=== PATIENT | female | born 1990 | race Caucasian/White ===

== ENCOUNTER 2018-07-12 07:32 | Emergency (ER) | payer OTHER ==
[~2018-07-12] VITALS: Ht 160 cm; Wt 117.9 kg
[~2018-07-12 07:32] MED LIST: KEPPRA500 MG PO
[2018-07-12 09:06] VITALS: BP 127/92
== END 2018-07-12 09:11 | disposition home or self-care (01) ==
LOC: FSED 07:32
DX: J02.9 Acute pharyngitis, unspecified (principal); R56.9 Unspecified convulsions; F41.9 Anxiety disorder, unspecified
CPT/HCPCS: 83518; 87400; 99283

== ENCOUNTER 2019-03-01 08:06 | Emergency (ER) | payer OTHER ==
[~2019-03-01] VITALS: Ht 162.6 cm; Wt 114.8 kg
[2019-03-01] MEDS ORDERED: CEFTRIAXONE SOD 1 GM VIAL IM ONE (08:30)
[2019-03-01] MEDS ORDERED: DEXAMETHASONE SOD PHOS 10 MG/1 ML VIAL IM ONE (08:30)
[2019-03-01] MEDS ORDERED: LEXAPRO10 MG PO (08:33)
[2019-03-01] MEDS ORDERED: LIDOCAINE HCL 1% 2 ML AMP ONE (08:46)
[2019-03-01 09:39] VITALS: BP 133/101
== END 2019-03-01 09:40 | disposition home or self-care (01) ==
LOC: ER 08:06
DX: R50.9 Fever, unspecified (principal); R05 Cough; J01.00 Acute maxillary sinusitis, unspecified
CPT/HCPCS: 99283; J0696; J1100; J2001

== ENCOUNTER 2019-06-02 05:49 | Emergency (ER) | payer OTHER ==
[~2019-06-02] VITALS: Ht 162.6 cm; Wt 114.8 kg
[~2019-06-02 05:49] MED LIST changes: +LEXAPRO10 MG PO
[2019-06-02] MEDS ORDERED: DIAZEPAM 5 MG TAB PO ONE (06:15)
[2019-06-02] MEDS ORDERED: KETOROLAC TROMETHAMINE 60 MG/2 ML VIAL IM ONE (06:15)
--- NOTE | 2019-06-02 07:10 | Diagnostic Imaging Report ---
History: Left neck pain. Comparison studies: Cervical spine from CT from 01/14/2016. Technique: Axial images were obtained through the cervical region.. Coronal and sagittal images reconstructed from the axial data. Dose modulation, iterative reconstruction, and/or weight based adjustment of the mA/kV was utilized to reduce the radiation dose to as low as reasonably achievable. Intravenous contrast: None Findings: Fractures: None. Soft tissue injuries: None. Atlantoaxial articulation: Intact. Alignment: Loss of normal cervical lordosis is either positional or due to muscle spasm. No scoliosis. No subluxation. Cervicomedullary junction: No abnormalities. The foramen magnum is patent. Soft tissues: No abnormalities. Vertebrae: No fractures, infection or neoplasm. Degenerative changes: C7-T1: Moderate degenerative right foraminal stenosis due to facet and uncovertebral arthrosis.. Mild degenerative disc disease. No canal stenosis. IMPRESSION: 1. No acute cervical spine fracture or dislocation. Loss of normal cervical lordosis is either positional or due to muscle spasm. 2. Ligament, spinal cord and or vascular abnormalities cannot be excluded on the basis of this examination. 3. Moderate right foraminal stenosis at C7-T1. No canal stenosis. Signed by: Dr. Magdalena Atkins M.D. on 06/02/2019 7:06 AM
--- NOTE | 2019-06-02 11:23 | NUR ---
[facility] CALLED INFORMING OF PT JUST PICKED UP A [facility] OF SAME MEDS TODAY AT [facility]; RX CANCELLED.
--- OUTSIDE RECORDS SUMMARY | 2019-06-03 14:02 | XMS REPORT ---
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 Allergies, Adverse Reactions, Alerts This patient has no known allergies or adverse reactions. Medications This patient has no known medications. Results Test Description Test Time Test Comments Text Results Atomic Results Result Comments CT CERVICAL SPINE WO 2019-06-02 07:02:00 [facility] [address] [place] [address] Patient Name: VJ GUTIERREZ MR #: [id number] : 1990 Age/Sex: 29/F Req #: [id number] Adm Physician: Ordered by: DREW FAUSTIN MD Report #: [id number] Location: ER Room/Bed: Procedure: [id number] CT/CT CERVICAL SPINE WO Exam Date: 06/02/19 Exam Time: 0625 REPORT STATUS: Signed History: Left neck pain. Comparison studies: Cervi itzel spine from CT from 01/14/2016. Technique: Axial images were obtained through the cervical region.. Coronal and sagittal images reconstructed from the axial data. Dose modulation, iterative reconstruction, and/or weight based adjustment of the mA/kV was utilized to reduce the radiation dose to as low as reasonably achievable. Intravenous contrast: None Findings: Fractures: None. Soft tissue injuries: None. Atlantoaxial articulation: Intact. Alignment: Loss of normal cervical lordosis is either positional or due to muscle spasm. No scoliosis. No subluxation. Cervicomedullary junction: No abnormalities. The foramen magnum is patent. Soft tissues: No abnormalities. Vertebrae: No fractures, infection or neoplasm. Degenerative changes: C7-T1: Moderate degenerative right foraminal stenosis due to facet and uncovertebral arthrosis.. Mild degenerative disc disease. No canal stenosis. IMPRESSION: 1. No acute cervical spine fracture or dislocation. Loss of normal cervical lordosis is either positional or due to muscle spasm. 2. Ligament, spinal cord and or vascular abnormalities cannot be excluded on the basis of this examination. 3. Moderate right foraminal stenosis at C7-T1. No canal stenosis. Signed by: Dr. Magdalena Rod M.D. on 06/02/2019 7:06 AM Dictated By: MAGDALENA ROD MD 5 Transcribed By: FELY on 06/02/19705 COPY TO: DREW FAUSTIN MD
== END 2019-06-02 07:31 | disposition home or self-care (01) ==
LOC: ER 05:49
DX: S16.1XXA Strain of muscle, fascia and tendon at neck level, initial encounter (principal); W01.0XXA Fall on same level from slipping, tripping and stumbling without subsequent striking against object, initial encounter; Y93.9 Activity, unspecified; Y92.092 Bedroom in other non-institutional residence as the place of occurrence of the external cause; G40.909 Epilepsy, unspecified, not intractable, without status epilepticus; F41.8 Other specified anxiety disorders; E66.9 Obesity, unspecified; Z68.41 Body mass index [BMI] 40.0-44.9, adult
CPT/HCPCS: 72125; 99283; J1885

== ENCOUNTER 2019-12-15 10:53 | Emergency (ER) | payer OTHER ==
[~2019-12-15] VITALS: Ht 162.6 cm; Wt 114.8 kg
--- NOTE | 2019-12-15 12:14 | Emergency Department Note ---
History of Present Illnes History of Present Illness Chief Complaint: General Medicine Complaints History of Present Illness This is a 29 year old female arrived to the ED with concerns of having Covid 19. Patient states she has had exposure and is worried for herself and has 3 kids. . 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 Any updates have been documented here. Past Medical History Recent Fever: No Clinical Suspicion of Infectio: Yes New/Unexplained Change in Ment: No Past Medical History: Seizure Disorder, Anxiety Other Medical History: morbid obesity Past Surgical History: None Social History Smoking Cessation: Current some day smoker Counseling Performed: No Alcohol Use: Occasional Any Illegal Drug Use: Yes (marijuana) Physically hurt or threatened: No Other Last Tetanus: unknown Any Pre-Existing Lines (PICC,: No Review of Systems Review of Systems Constitutional: Reports as per HPI, Reports fever EENTM: Reports no symptoms Cardiovascular: Reports no symptoms Respiratory: Reports as per HPI Gastrointestinal: Reports no symptoms Genitourinary: Reports no symptoms Musculoskeletal: Reports no symptoms Integumentary: Reports no symptoms Neurological: Reports no symptoms Psychological: Reports no symptoms Endocrine: Reports no symptoms Hematological/Lymphatic: Reports no symptoms Physical Exam Related Data Allergies: Coded Allergies: No Known Allergies (Unverified , 01/14/16) Triage Vital Signs Vital Signs Date Time Temp Pulse Resp B/P (MAP) Pulse Ox O2 Delivery O2 Flow Rate FiO2 12/15/19 11:13 99.5 114 20 157/106 98 Room Air Vital signs reviewed: Yes Physical Exam CONSTITUTIONAL Constitutional: Present well-developed, Present well-nourished HENT HENT: Present normocephalic, Present atraumatic, Present oropharynx clear/moist, Present nose normal HENT L/R: Present left ext ear normal, Present right ext ear normal EYES Eyes: Reports PERRL, Reports conjunctivae normal NECK Neck: Present ROM normal PULMONARY Pulmonary: Present effort normal, Present breath sounds normal CARDIOVASCULAR Cardiovascular: Present regular rhythm, Present heart sounds normal, Present capillary refill normal, Present normal rate GASTROINTESTINAL Abdominal: Present soft, Present nontender, Present bowel sounds normal GENITOURINARY Genitourinary: Present exam deferred SKIN Skin: Present warm, Present dry MUSCULOSKELETAL Musculoskeletal: Present ROM normal NEUROLOGICAL Neurological: Present alert, Present oriented x 3, Present no gross motor or sensory deficits PSYCHOLOGICAL Psychological: Present mood/affect normal, Present judgement normal Results Laboratory Laboratory Laboratory Tests Test 12/15/19 11:20 Assessment & Plan Medical Decision Making MDM 29-year-old well-appearing callie arrives to the ED with complaints of cough fever loss of taste and smell. Patient is clinically presenting with signs and symptoms consistent with Covd 19. Patient informed she is positive until proven otherwise. Patient's oxygen saturation remained 99% even on exertion, no evidence of tachypnea or dyspnea noted in the ED. Spoke present length about the importance of sleeping on his stomach and rotating from side to side. Z-Elie given, signs and symptoms for return discussed. In the light of the Covid pandemic, disaster medicine care was given. Assessment & Plan Final Impression: (1) COVID-19 Depart Disposition: HOME, SELF-CARE Last Vital Signs Date Time Temp Pulse Resp B/P (MAP) Pulse Ox O2 Delivery O2 Flow Rate FiO2 12/15/19 11:13 99.5 114 20 157/106 98 Room Air Home Meds Reported Medications Escitalopram Oxalate (LEXAPRO) 10 Mg Tablet, 10 MG PO DAILY, #30 TAB 03/01/19 Levetiracetam (KEPPRA) 500 Mg Tablet, 500 MG PO BID, TAB 10/22/16 ABIOLA GRIFFIN DO Dec 15, 2019 12:14
--- NOTE | 2019-12-19 08:45 | NUR ---
pt given neg covid 19 resuts. per lab report
== END 2019-12-15 11:36 | disposition home or self-care (01) ==
LOC: ER 11:29
DX: U07.1 COVID-19 (principal); R50.9 Fever, unspecified; R05 Cough; F41.9 Anxiety disorder, unspecified; G40.909 Epilepsy, unspecified, not intractable, without status epilepticus; E66.01 Morbid (severe) obesity due to excess calories; Z11.59 Encounter for screening for other viral diseases; F17.210 Nicotine dependence, cigarettes, uncomplicated
CPT/HCPCS: 87635; 99282

== ENCOUNTER 2020-03-28 07:09 | Emergency (ER) | payer OTHER ==
[~2020-03-28] VITALS: Ht 162.6 cm; Wt 122.5 kg
--- NOTE | 2020-03-28 07:14 | Emergency Department Note ---
History of Present Illnes History of Present Illness History of Present Illness This is a 29 year old female with increased sinus pain since thursday presents to the ED for increase chest congestion. Recently started on azithromycin 2 days prior . Historian: Patient Onset (how long ago): day(s) (2) Severity: moderate Onset quality: gradual Duration (how long): day(s) (2) Timing of current episode: constant Progression: worsening Chronicity: new Context: Reports recent illness Relieving factors: none Exacerbating factors: none Associated symptoms: Reports cough, Reports fever/chills Previous service: medications given Past Medical/Family History Physician Review I have reviewed the patient's past medical and family history. Any updates have been documented here. Past Medical History Recent Fever: Yes Clinical Suspicion of Infectio: Yes New/Unexplained Change in Ment: No Past Medical History: Seizure Disorder, Anxiety Other Medical History: asthma morbid obesity Past Surgical History: None Social History Smoking Cessation: Never Smoker Alcohol Use: None Any Illegal Drug Use: Yes (marijuana) Other Last Tetanus: unknown Review of Systems Review of Systems Constitutional: Reports fever EENTM: Reports nose congestion Cardiovascular: Reports other (chest congestion) Respiratory: Reports cough Neurological: Reports other (dizziness) Physical Exam Related Data Allergies: Coded Allergies: No Known Allergies (Unverified , 01/14/16) Vital signs reviewed: Yes Physical Exam CONSTITUTIONAL Constitutional: Present morbidly obese HENT HENT: Present normocephalic, Present atraumatic, Present oropharynx clear/ivory st, Present nose normal HENT L/R: Present left ext ear normal, Present right ext ear normal EYES Eyes: Reports PERRL, Reports conjunctivae normal NECK Neck: Present ROM normal PULMONARY Pulmonary: Present effort normal, Present other (bibasilar wheezing) CARDIOVASCULAR Cardiovascular: Present regular rhythm, Present heart sounds normal, Present capillary refill normal, Present normal rate GASTROINTESTINAL Abdominal: Present soft, Present nontender, Present bowel sounds normal GENITOURINARY Genitourinary: Present exam deferred SKIN Skin: Present warm, Present dry MUSCULOSKELETAL Musculoskeletal: Present ROM normal NEUROLOGICAL Neurological: Present alert, Present oriented x 3, Present no gross motor or sensory deficits PSYCHOLOGICAL Psychological: Present mood/affect normal, Present judgement normal Results Laboratory Lab results reviewed: Yes Laboratory comments Laboratory Tests Test 03/28/20 07:29 White Blood Count 6.79 x10e3/uL (4.8-10.8) Red Blood Count 4.83 x10e6/uL (3.6-5.1) Hemoglobin 14.0 g/dL (12.0-16.0) Hematocrit 41.7 % (34.2-44.1) Mean Corpuscular Volume 86.3 fL (81-99) Mean Corpuscular Hemoglobin 29.0 pg (28-32) Mean Corpuscular Hemoglobin Concent 33.6 g/dL (31-35) Red Cell Distribution Width 13.3 % (11.7-14.4) Platelet Count 212 x10e3/uL (140-360) Neutrophils (%) (Auto) 60.5 % (38.7-80.0) Lymphocytes (%) (Auto) 24.0 % (18.0-39.1) Monocytes (%) (Auto) 9.6 % (4.4-11.3) Eosinophils (%) (Auto) 5.2 % (0.0-6.0) Basophils (%) (Auto) 0.4 % (0.0-1.0) Neutrophils # (Auto) 4.1 (2.1-6.9) Lymphocytes # (Auto) 1.6 (1.0-3.2) Monocytes # (Auto) 0.7 (0.2-0.8) Eosinophils # (Auto) 0.4 (0.0-0.4) Basophils # (Auto) 0.0 (0.0-0.1) Absolute Immature Granulocyte (auto 0.02 x10e3/uL (0-0.1) Sodium Level 140 mmol/L (136-145) Potassium Level 3.6 mmol/L (3.5-5.1) Chloride Level 107 mmol/L (98-107) Carbon Dioxide Level 21 mmol/L (22-29) Anion Gap 15.6 mmol/L (8-16) Blood Urea Nitrogen 6 mg/dL (7-26) Creatinine 0.77 mg/dL (0.57-1.11) Estimat Glomerular Filtration Rate > 60 ML/MIN (60-) BUN/Creatinine Ratio 8 (6-25) Glucose Level 97 mg/dL (74-118) Calcium Level 9.0 mg/dL (8.4-10.2) Total Bilirubin 0.6 mg/dL (0.2-1.2) Aspartate Amino Transf (AST/SGOT) 27 IU/L (5-34) Alanine Aminotransferase (ALT/SGPT) 35 IU/L (0-55) Alkaline Phosphatase 58 IU/L (40-150) Total Protein 7.1 g/dL (6.5-8.1) Albumin 3.7 g/dL (3.5-5.0) Globulin 3.4 g/dL (2.3-3.5) Albumin/Globulin Ratio 1.1 (0.8-2.0) Influenza Virus Types A,B Antigen Negative (NEGATIVE) Imaging Imaging results reviewed: Yes Impressions [place] [address] Patient Name: ODESSA GUTIERREZ MR #: [id number] : 1990 Age/Sex: 29/F Req #: [id number] Adm Physician: Ordered by: PARKER BYERS DO Report #: [id number] Location: ER Room/Bed: Procedure: [id number] DX/CHEST 2 VIEWS Exam Date: 03/28/20 Exam Time: 829 REPORT STATUS: Signed EXAMINATION: CHEST 2 VIEWS INDICATION: ^cough ^[id number] ^0830 COMPARISON: None FINDINGS: PA and lateral views TUBES and LINES: None. LUNGS: Lungs are well inflated. Lungs are clear. There is no evidence of pneumonia or pulmonary edema. PLEURA: No pleural effusion or pneumothorax. HEART AND MEDIASTINUM: The cardiomediastinal silhouette is unremarkable. BONES AND SOFT TISSUES: No acute osseous lesion. Soft tissues are unremarkable. UPPER ABDOMEN: No free air under the diaphragm. IMPRESSION: No acute thoracic radiographic abnormality. Signed by: Oneil Marx MD on 03/28/2020 9:22 AM Dictated By: ONEIL MARX MD 1 Transcribed By: FELY on 03/28/20921 COPY TO: PARKER BYERS DO~ Assessment & Plan Medical Decision Making MDM Diff Dx : URI, COVID-19 infection, ACS, , ectopic , Seizure Assessment & Plan Final Impression: (1) URI (upper respiratory infection) Depart Disposition: HOME, SELF-snf Meds Reported Medications Escitalopram Oxalate (LEXAPRO) 10 Mg Tablet, 10 MG PO DAILY, #30 TAB 03/01/19 Levetiracetam (KEPPRA) 500 Mg Tablet, 500 MG PO BID, TAB 10/22/16 PARKER BYERS DO Mar 28, 2020 07:14
[2020-03-28] MEDS ORDERED: SODIUM CHLORIDE 0.9% 1000ML 1,000 ML IV STA (07:22)
[2020-03-28] MEDS ORDERED: ALBUTEROL/IPRATROPIUM 3 ML NEB NEB STA (07:25)
[2020-03-28] MEDS ORDERED: METHYLPREDNISOLONE SOD SUCC 125 MG/2ML VIAL IV STA (07:25)
--- NOTE | 2020-03-28 07:49 | NUR ---
requested Nebulizer Treatment from [facility]
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
[2020-03-28 07:59] LABS: BASOPHILS % 0.4 % (0.0-1.0); EOSINOPHILS # (AUTO) 0.4 (0.0-0.4); EOSINOPHILS % 5.2 % (0.0-6.0); HEMATOCRIT 41.7 % (34.2-44.1); LYMPHOCYTES # (AUTO) 1.6 (1.0-3.2); MEAN CORPUSCULAR HGB CONC 33.6 g/dL (31-35); MEAN CORPUSCULAR VOLUME 86.3 fL (81-99); MONOCYTES # (AUTO) 0.7 (0.2-0.8); MONOCYTES % 9.6 % (4.4-11.3); NEUTROPHILS # (AUTO) 4.1 (2.1-6.9); NEUTROPHILS % 60.5 % (38.7-80.0); PLATELET COUNT 212 x10e3/uL (140-360); RED BLOOD COUNT 4.83 x10e6/uL (3.6-5.1); RED CELL DISTRIBUTION WIDTH 13.3 % (11.7-14.4)
[2020-03-28 08:40] LABS: ALANINE AMINOTRANSFERASE 35 IU/L (0-55); ALBUMIN 3.7 g/dL (3.5-5.0); ALBUMIN/GLOBULIN RATIO 1.1 (0.8-2.0); ALKALINE PHOSPHATASE 58 IU/L (40-150); ANION GAP 15.6 mmol/L (8-16); BLOOD UREA NITROGEN 6 mg/dL (7-26); BUN/CREATININE RATIO 8 (6-25); CARBON DIOXIDE 21 mmol/L (22-29); CHLORIDE 107 mmol/L (98-107); CREATININE, SERUM 0.77 mg/dL (0.57-1.11); EST GLOMERULAR FILTRATION RATE > 60 ML/MIN (60-); GLUCOSE 97 mg/dL (74-118); POTASSIUM 3.6 mmol/L (3.5-5.1); SODIUM 140 mmol/L (136-145)
--- NOTE | 2020-03-28 09:25 | Diagnostic Imaging Report ---
EXAMINATION: CHEST 2 VIEWS INDICATION: ^cough ^[id number] ^0822 COMPARISON: None FINDINGS: PA and lateral views TUBES and LINES: None. LUNGS: Lungs are well inflated. Lungs are clear. There is no evidence of pneumonia or pulmonary edema. PLEURA: No pleural effusion or pneumothorax. HEART AND MEDIASTINUM: The cardiomediastinal silhouette is unremarkable. BONES AND SOFT TISSUES: No acute osseous lesion. Soft tissues are unremarkable. UPPER ABDOMEN: No free air under the diaphragm. IMPRESSION: No acute thoracic radiographic abnormality. Signed by: Josue Tavera MD on 03/28/2020 9:22 AM
[2020-03-28 09:47] VITALS: BP 124/86
== END 2020-03-28 10:00 | disposition home or self-care (01) ==
LOC: ER 07:50
DX: J06.9 Acute upper respiratory infection, unspecified (principal); G40.909 Epilepsy, unspecified, not intractable, without status epilepticus; F41.9 Anxiety disorder, unspecified; E66.01 Morbid (severe) obesity due to excess calories
CPT/HCPCS: 36415; 71046; 80053; 85025; 87400; 94640; 99284; J2930; J7030

== ENCOUNTER 2022-01-05 20:20 | Emergency (ER) | payer OTHER ==
[~2022-01-05] VITALS: Ht 162.6 cm; Wt 122.5 kg
[2022-01-05] MEDS ORDERED: METHYLPREDNISOLONE SOD SUCC 125 MG/2ML VIAL IM STA (20:43)
[2022-01-05] MEDS ORDERED: METHYLPREDNISOLONE SOD SUCC 125 MG/2ML VIAL ONE (20:56)
[2022-01-05] MEDS ORDERED: AZITHROMYCIN250 MG PO (22:11)
[2022-01-05] MEDS ORDERED: PREDNISONE20 MG PO (22:11)
[2022-01-05 22:50] VITALS: BP 128/85
== END 2022-01-05 23:00 | disposition home or self-care (01) ==
LOC: ER 20:35
DX: R50.9 Fever, unspecified (principal); J32.9 Chronic sinusitis, unspecified; E66.01 Morbid (severe) obesity due to excess calories
CPT/HCPCS: 70486; 99282; J2930

== ENCOUNTER 2024-01-27 17:35 | Emergency (ER) | payer OTHER ==
[~2024-01-27] VITALS: Ht 162.6 cm; Wt 122.5 kg
[~2024-01-27 17:35] MED LIST changes: +AMOX TR-K CLV1 EAC2 PO; +AZITHROMYCIN250 MG PO; +CIPROFLOX-DEXA7.5 ML RIGHT EAR; +PREDNISONE20 MG PO; +XOFLUZA80 MG PO
[2024-01-27 18:17] VITALS: TEMP 99.1
[2024-01-27] MEDS: KETOROLAC TROMETHAMINE 30 MG/ML VIAL IV STA (18:50)
[2024-01-27] MEDS: SODIUM CHLORIDE 0.9% 1000ML 1,000 ML IV SCH (18:50)
[2024-01-27] MEDS: ONDANSETRON HCL INJ 2MG/ML 2ML 2 MG/ML VIAL IV STA (18:51)
[2024-01-27 19:07] LABS: INFLUENZAE A&B ANTIGEN (RAPID) NEGATIVE (NEGATIVE)
[2024-01-27 19:08] LABS: RESPIRATORY SYNC. VIRUS POSITIVE (NEGATIVE)
[2024-01-27 19:40] VITALS: PULSE 87; RESP 16
[2024-01-27] MEDS ORDERED: MUCINEX DM ER1 EACH PO (19:49)
[2024-01-27 20:08] VITALS: BP 130/78; PULSE 87; RESP 16; O2SAT 100
[2024-01-28] MEDS ORDERED: BENZONATATE100 MG PO (15:36)
[2024-01-28] MEDS ORDERED: ONDANSETRON ODT4 MG PO (15:36)
== END 2024-01-27 20:00 | disposition home or self-care (01) ==
LOC: ER 18:08
DX: R50.9 Fever, unspecified (principal); B97.4 Respiratory syncytial virus as the cause of diseases classified elsewhere; R05.9 Cough, unspecified; R51.9 Headache, unspecified; J45.909 Unspecified asthma, uncomplicated; G40.909 Epilepsy, unspecified, not intractable, without status epilepticus; F41.9 Anxiety disorder, unspecified; E66.01 Morbid (severe) obesity due to excess calories; Z11.52 Encounter for screening for COVID-19
CPT/HCPCS: 87400; 87420; 99283; J1885; J2405; J7030; U0002

== ENCOUNTER 2024-01-28 13:49 | Emergency (ER) | payer OTHER ==
[~2024-01-28] VITALS: Ht 162.6 cm; Wt 122.5 kg
[~2024-01-28 13:49] MED LIST changes: +MUCINEX DM ER1 EACH PO
[2024-01-28 13:53] VITALS: TEMP 98.3
[2024-01-28] MEDS: SODIUM CHLORIDE 0.9% 1000ML 1,000 ML IV ONE (15:08)
[2024-01-28] MEDS: ONDANSETRON HCL INJ 2MG/ML 2ML 2 MG/ML VIAL IV ONE (15:08)
[2024-01-28 15:09] LABS: BASOPHILS % 0.7 % (0.0-1.0); EOSINOPHILS # (AUTO) 0.3 (0.0-0.4); EOSINOPHILS % 4.8 % (0.0-6.0); HEMATOCRIT 38.5 % (34.2-44.1); HEMOGLOBIN 12.8 g/dL (12.0-16.0); LYMPHOCYTES # (AUTO) 0.9 (1.0-3.2); LYMPHOCYTES % 16.4 % (18.0-39.1); MEAN CORPUSCULAR HEMOGLOBIN 30.3 pg (28-32); MEAN CORPUSCULAR HGB CONC 33.2 g/dL (31-35); MEAN CORPUSCULAR VOLUME 91.2 fL (81-99); MONOCYTES # (AUTO) 0.3 (0.2-0.8); MONOCYTES % 4.6 % (4.4-11.3); NEUTROPHILS # (AUTO) 4.2 (2.1-6.9); NEUTROPHILS % 73.3 % (38.7-80.0); PLATELET COUNT 206 x10e3/uL (140-360); RED BLOOD COUNT 4.22 x10e6/uL (3.6-5.1); RED CELL DISTRIBUTION WIDTH 14.8 % (11.7-14.4); WHITE BLOOD COUNT 5.68 x10e3/uL (4.8-10.8)
[2024-01-28 15:22] LABS: ALBUMIN 3.4 g/dL (3.5-5.0); ALBUMIN/GLOBULIN RATIO 1.1 (0.8-2.0); ANION GAP 12.6 mmol/L (8-16); BILIRUBIN,TOTAL 1.5 mg/dL (0.2-1.2); CALCIUM 8.4 mg/dL (8.4-10.2); CREATININE, SERUM 0.77 mg/dL (0.57-1.11); POTASSIUM 3.6 mmol/L (3.5-5.1); TOTAL PROTEIN 6.6 g/dL (6.5-8.1)
[2024-01-28] MEDS ORDERED: ONDANSETRON ODT4 MG PO (15:36)
[2024-01-28] MEDS ORDERED: BENZONATATE100 MG PO (15:36)
[2024-01-28] MEDS: PROCHLORPERAZINE EDISYLATE 5 MG/ML VIAL IV ONE (15:51)
[2024-01-28 16:00] VITALS: PULSE 80; RESP 16
[2024-01-28 16:52] VITALS: PULSE 98; RESP 22; O2SAT 98
[2024-01-28] MEDS: ALBUTEROL/IPRATROPIUM 3 ML NEB NEB ONE (16:52)
== END 2024-01-28 17:46 | disposition home or self-care (01) ==
LOC: ER 13:57
DX: R06.00 Dyspnea, unspecified (principal); B97.4 Respiratory syncytial virus as the cause of diseases classified elsewhere; J45.909 Unspecified asthma, uncomplicated; G40.909 Epilepsy, unspecified, not intractable, without status epilepticus; F41.9 Anxiety disorder, unspecified; E66.01 Morbid (severe) obesity due to excess calories
CPT/HCPCS: 36415; 80053; 85025; 99284; J0780; J2405; J7030